=== PATIENT | male | born 1975 | race Caucasian/White ===

== ENCOUNTER 2023-07-06 15:42 | Emergency (ER) | payer OTHER ==
[~2023-07-06] VITALS: Ht 182.9 cm; Wt 97.5 kg
[2023-07-06 15:56] VITALS: BP 134/90
[2023-07-06] MEDS ORDERED: NAPR500EC PO (16:20)
[2023-07-06] MEDS ORDERED: CYCL10 PO (16:20)
[2023-07-07 23:07] LABS: CHLAMYDIA TRACHOMATIS, NAA Negative (Negative)
== END 2023-07-06 16:47 | disposition home or self-care (01) ==
LOC: ER 15:42
PROVIDERS: Physician Assistant
DX: Z20.2 Contact with and (suspected) exposure to infections with a predominantly sexual mode of transmission (principal); Z79.899 Other long term (current) drug therapy
CPT/HCPCS: 87491; 87591; 96372; 99283-25; A9270; J0696